=== PATIENT | male | born 1955 | race Caucasian/White ===

== ENCOUNTER 2024-04-26 23:58 | Emergency (ER) | payer MEDICARE, SELFPAY ==
--- NOTE | ~2024-04-26 | CT_ITS ---
Non-contrast Head CT History: Trouble walking Technique: Axial non-contrast imaging of the brain was performed. Dose reduction technique was used on this scan by utilizing automated exposure control and iterative reconstruction technique. The dose -length product (DLP) was 681.00 mGy-cm. Findings: There is no evidence of intracranial hemorrhage, mass lesion, or acute infarct. Brain par enchyma appears normal. The ventricles and subarachnoid spaces are normal in size. The calvarium ap pears normal. There is left maxillary sinus disease. The remaining visualized paranasal sinuses and m astoid air cells are clear. Impression: No intracranial abnormality seen. Left maxillary sinus disease. Reviewed, dictated and finalized at location M. AIGN ANALYST Impression: No intracranial abnormality seen. Left maxillary sinus disease.
[2024-04-26 23:58] VITALS: BP 149/73; PULSE 65; RESP 18; TEMP 36.4; O2SAT 100
--- NOTE | 2024-04-27 00:01 | ECG_ITS ---
Test Date: 2024-04-27 01:25:12 Measurements Intervals [place] Rate: 60 P: 47 TN: 194 QRS: 75 QRSD: 124 T: 57 QT: 471 QTc: 471 Interpretive Statements SINUS RHYTHM POSSIBLE RIGHT VENTRICULAR CONDUCTION DELAY [RSR (QR) IN V1/V2] No previous ECG available for comparison Electronically Signed On 04-28-2024 12:34:07 CHIEF OPERATOR SYNTHESIS by Miquel Akbar M.D.
[2024-04-27 00:16] LABS: Basophils Absolute Auto 0.05 K/mm3 (0.00-0.10); Basophils Percent Auto 0.5 % (0.0-1.0); Eosinophils Absolute Auto 0.22 K/mm3 (0.02-0.50); Eosinophils Percent Auto 2.1 % (1.0-6.0); Hematocrit 35.9 % (37.0-46.0); Hemoglobin 11.6 g/dL (12.4-15.3); Immature Granulocyte Absolute 0.07 K/mm3 (0.00-0.00); Immature Granulocyte Percent A 0.7 % (0.0-0.0); Lymphocytes Absolute Auto 2.84 K/mm3 (1.10-4.50); Lymphocytes Percent Auto 27.5 % (18.0-42.0); Mean Corpuscular HGB Conc 32.3 g/dL (32-36); Mean Corpuscular Hemoglobin 30.3 pg (27.0-31.0); Mean Corpuscular Volume 93.7 fL (78.0-102.0); Mean Platelet Volume 10.8 fl (8.7-11.0); Monocytes Absolute Auto 1.28 K/mm3 (0.10-0.90); Monocytes Percent Auto 12.4 % (2.0-11.0); Neutrophils Absolute Auto 5.87 K/mm3 (1.70-7.20); Neutrophils Percent Auto 56.8 % (50.0-70.0); Platelet Count Result 212 K/mm3 (150-420); Red Blood Count 3.83 M/mm3 (4.70-6.10); Red Cell Distribution Width 14.4 % (11.6-14.4); White Blood Count 10.3 K/mm3 (4.8-10.8)
--- NOTE | 2024-04-27 00:20 | ED.GENADULT ---
HPI - General Adult General Chief complaint: Unspecified Stated complaint: Low Blood Sugar Time Seen by Provider: 04/27/24 00:00 Source: patient and EMS Mode of arrival: EMS Limitations: no limitations History of Present Illness HPI narrative: 68 year old male arrives to the Emergency Department via EMS. Patient was at local bar and having difficulty walking. He normally walks with a cane. He has Parkinson's and right below knee amputation. He states he had 2 drinks (scotch and water). He denies any headache, chest pain, shortness of breath, abdominal pain, recent illness with nausea or vomiting. EMS reports patient had blood glucose in 60's. He was given Mountain Dew and rechecked and still in 60's. He was given 15 gm glucose and D10 IV. Onset (ago): minute(s) Relieving factors: none Exacerbating factors: none Treatments prior to arrival: other (glucose) Related Data Home Medications ?Medication ?Instructions ?Recorded ?Confirmed ?Last Taken ?Type carbidopa 25 mg-levodopa 100 mg 1 tablet PO TIDWM 03/21/21 03/21/21 Unknown History tablet levothyroxine 150 mcg tablet 150 mcg PO DAILY 03/21/21 03/21/21 Unknown History pantoprazole 40 mg tablet,delayed 40 mg PO BID 03/21/21 03/21/21 Unknown History release pregabalin 150 mg capsule 150 mg PO BID 03/21/21 03/21/21 Unknown History subcutaneous insulin pump (MiniMed 03/21/21 04/27/24 Unknown History 770G Insulin Pump) amlodipine 5 mg tablet 5 mg PO DAILY 04/27/24 04/27/24 Unknown History ezetimibe 10 mg tablet 10 mg PO DAILY 04/27/24 04/27/24 Unknown History insulin glargine 100 unit/mL (3 30 unit subcut DAILY 04/27/24 04/27/24 Unknown History mL) subcutaneous pen (Basaglar KwikPen U-100 Insulin) sertraline 50 mg tablet 50 mg PO DAILY 04/27/24 04/27/24 Unknown History Allergies Allergy/AdvReac Type Severity Reaction Status Date / Time No Known Allergies Allergy Verified 03/22/21 06:07 Review of Systems Review of Systems: All systems reviewed & are unremarkable except as noted in HPI and below Constitutional: Constitutional: Reports as per HPI, Denies chills and Denies fever(s) Eyes: Eyes: Reports as per HPI and Denies change in vision ENT: Reports system reviewed and no additional complaints, except as documented Cardiovascular: Cardiovascular: Reports as per HPI, Denies chest pain, Denies rapid heart rate and Denies slow heart rate Respiratory: Respiratory: Reports as per HPI and Denies dyspnea Gastrointestinal: Gastrointestinal: Reports as per HPI, Denies abdominal pain, Denies diarrhea, Denies nausea and Denies vomiting Genitourinary: Genitourinary: Reports no additional male genitourinary complaints, Denies dysuria and Denies urinary frequency Musculoskeletal: Musculoskeletal: Reports no additional musculoskeletal complaints Integumentary/Breasts: Skin/Breast: Reports system reviewed and no additional complaints, except as docu Neurologic: Reports system reviewed and no additional complaints, except as documented Comments: difficulty walking Endocrine: Endocrine: Reports no additional endocrine complaints Hematologic/Lymphatic: Hematologic/Lymphatic: Reports no additional hematologic/lymphatic complaints Allergic/Immunologic: Allergic/Immunologic: Reports no additional allergic/immunologic complaints PMFSH Past Medical History Medical History Hypothyroidism Parkinsons Osteoarthritis Rheumatoid arthritis PVD (peripheral vascular disease) Chronic kidney disease Hypertension Erosive esophagitis Surgical History Surgical History Status post below knee amputation of right lower extremity Family History Family History Father Family history of liver disease Family history of diabetes mellitus in first degree relative Family history of neuropathy Mother Family history of diabetes mellitus in first degree relative Family history of neuropathy Social History Social History Social History: patient lives in his nephew's home in the basement. Smoking status: Former smoker Alcohol intake: never Exam Const: General: no acute distress and alert Nutritional Appearance: well nourished Orientation/consciousness: patient oriented x3 Limitations: no limitations HENMT: Head: normal to inspection Ears: external ears normal Face/Nose/Sinus: Normal external nose present Face and sinus: normal facial exam Mouth: Yes Normal oral and palatal mucosa present Teeth and gingiva: dentition normal Throat: posterior oropharynx normal Eyes: Pupils: Equal, round and reactive pupils present EOM: EOMs intact bilaterally Direct Ophthalmoscopy: no photophobia Neck: Neck: normal visual inspection and meningismus present Chest: Chest palpation & inspection: normal inspection of the chest Resp: Effort & Inspection: normal respiratory effort Auscultation: clear to auscultation bilaterally Cardio: Rate: regular rate Rhythm: regular rhythm GI: Inspection: non-distended GI Palp: Yes Soft to palpation and No Tenderness to palpation present (GI) : General: Yes bladder normal to palpation Back/Spine/Pelvis: Back: no CVA tenderness Skin: General skin exam: normal color Neuro: General: patient oriented x3, moves all extremities, no meningeal signs, no focal motor deficits and CN's II-XI intact bilaterally Other: attempted to ambulate, but patient can stand but unable to walk Extrem: Other: right BKA Course Course Emergency Course: 68 y/o male arrives to the ED via EMS. Patient was at local bar and having difficulty walking PE: smells of Etoh, right BKA FSBS: 183 CBC: H/H 11.6/35.9, Plt 212; wbc 10.3 with 57 S, 27 L, 12 M CMP: Na 137, K 4.1, Cl 100, CO2 28, Glc 250, BUN 14, Cr 1.27; LFT's normal TNI: 5.2 EKG: NSR, 60, NAC Lactic: 1.7 Etoh: 170 UA: unremarkable CT Head: no acute findings Tx: youth nutritional monitor, pulse ox *patient has no way to get home at this time. Will let him sleep in ED until BAL lower and see if able to walk at that time. Patient voices understanding and is in agreement. (2495) patient is feeling better and able to walk again [back to baseline]. He has a special education bus driver coming to pick him up. Patient is ready to go home. Instructions Vital Signs Vital signs: Vital Signs Temperature 36.4 C 04/26/24 23:58 Pulse Rate 65 04/26/24 23:58 Respiratory Rate 18 04/26/24 23:58 Blood Pressure 149/73 H 04/26/24 23:58 Pulse Oximetry 100 04/26/24 23:58 Oxygen Delivery Room Air 04/26/24 23:58 Temperature 36.4 C 04/26/24 23:58 Pulse Rate 65 04/26/24 23:58 Respiratory Rate 18 04/26/24 23:58 Blood Pressure 149/73 H 04/26/24 23:58 Pulse Oximetry 100 04/26/24 23:58 Oxygen Delivery Room Air 04/26/24 23:58 Medical Decision Making Vital Signs Vital Signs: Vital Signs Temperature 36.4 C 04/26/24 23:58 Pulse Rate 65 04/26/24 23:58 Respiratory Rate 18 04/26/24 23:58 Blood Pressure 149/73 H 04/26/24 23:58 Pulse Oximetry 100 04/26/24 23:58 Oxygen Delivery Room Air 04/26/24 23:58 Temperature 36.4 C 04/26/24 23:58 Pulse Rate 65 04/26/24 23:58 Respiratory Rate 18 04/26/24 23:58 Blood Pressure 149/73 H 04/26/24 23:58 Pulse Oximetry 100 04/26/24 23:58 Oxygen Delivery Room Air 04/26/24 23:58 Lab Data 04/27/24 00:13 04/27/24 00:13 Labs: Lab Results 04/27/24 04/27/24 Range/Units 00:13 02:25 WBC 10.3 (4.8-10.8) K/mm3 RBC 3.83 L (4.70-6.10) M/mm3 Hgb 11.6 L (12.4-15.3) g/dL Hct 35.9 L (37.0-46.0) % MCV 93.7 (78.0-102.0) fL MCH 30.3 (27.0-31.0) pg MCHC 32.3 (32-36) g/dL RDW 14.4 (11.6-14.4) % Plt Count 212 (150-420) K/mm3 MPV 10.8 (8.7-11.0) fl Immature Gran % (Auto) 0.7 H (0.0-0.0) % Neut % (Auto) 56.8 (50.0-70.0) % Lymph % (Auto) 27.5 (18.0-42.0) % [place] % (Auto) 12.4 H (2.0-11.0) % Eos % (Auto) 2.1 (1.0-6.0) % Baso % (Auto) 0.5 (0.0-1.0) % Lymph # (Auto) 2.84 (1.10-4.50) K/mm3 [place] # (Auto) 1.28 H (0.10-0.90) K/mm3 Eos # (Auto) 0.22 (0.02-0.50) K/mm3 Baso # (Auto) 0.05 (0.00-0.10) K/mm3 Abs Immat Gran (auto) 0.07 H (0.00-0.00) K/mm3 Absolute Neuts (auto) 5.87 (1.70-7.20) K/mm3 Absolute Nucleated RBC 0.00 (0.00-0.00) K/mm3 Nucleated RBC % 0.0 (0-0.0) % Sodium 137 (136-145) mmol/L Potassium 4.1 (3.5-5.1) mmol/L Chloride 100 (98-108) mmol/L Carbon Dioxide 28 (21-32) mmol/L Anion Gap 9 (4-12) mmol/L BUN 14 (7-18) mg/dL Creatinine 1.27 (0.70-1.30) mg/dL Estim Creat Clear Calc Not Reportable Estimated GFR 56 L (59 - ) Glucose 250 H (70-99) mg/dL Calculated Osmolality 292 (285-295) mOsm/kg Lactic Acid 1.7 (0.4-2.0) mmol/L Calcium 8.7 (8.5-10.1) mg/dL Total Bilirubin 0.3 (0.00-1.00) mg/dL AST 17 (15-37) U/L ALT 14 L (16-63) U/L Alkaline Phosphatase 120 H (46-116) U/L Troponin I 5.2 (0.00-60.4) ng/L Total Protein 7.1 (6.4-8.2) g/dL Albumin 3.4 (3.4-5.0) g/dL Urine Color Light yellow (Yellow) Urine Appearance Clear (Clear) Urine pH 6.0 (5.0-8.0) Ur Specific [place] <= 1.005 L (1.010-1.020) Urine Protein Negative (Negative) Urine Glucose (UA) Negative (Negative) Urine Ketones Negative (Negative) Ur Blood (Man) Negative (Negative) Urine Nitrate Negative (Negative) Urine Bilirubin Negative (Negative) Urine Urobilinogen 0.2 (0.2-1.0) mg/dL Ur Leukocyte Esterase Trace H (Negative) Urine RBC 0-2 (0-2) /hpf Urine WBC 0-3 (0-3) /hpf Ur Squamous Epith Cells Rare (Few) /hpf Urine Bacteria Trace (None) /hpf Ethyl Alcohol 170 H (0-6) mg/dL Discharge Plan Discharge Clinical Impression: Alcohol intoxication, Unsteady gait when walking Patient Disposition: Home, Self-Care Condition: Stable Instructions: Parkinson Disease (ED), Alcohol Intoxication (ED) Additional Instructions: Continue home medications Limit alcohol use Follow up Primary Care Physician Patient Language: Liberian Prescriptions: No Action amlodipine 5 mg tablet 5 mg PO DAILY sertraline 50 mg tablet 50 mg PO DAILY ezetimibe 10 mg tablet 10 mg PO DAILY insulin glargine [Basaglar KwikPen U-100 Insulin] 100 unit/mL (3 mL) insulin pen 30 unit SUBCUT DAILY pantoprazole 40 mg Tablet,Delayed Release (Dr/Ec) 40 mg PO BID levothyroxine 150 mcg Tablet 150 mcg PO DAILY carbidopa-levodopa 25-100 mg Tablet 1 tablet PO TIDWM pregabalin 150 mg Capsule 150 mg PO BID (DME) MiniMed 770G Insulin Pump Misc MISCELLANEOUS Rx Instructions: Novolog insulin Home Medication 1 ea Not Applicable DAILY@0600 Qty: 0 0RF Follow-up/Referrals: UNKNOWN,DOCTOR [Primary Care Provider] - Time of Disposition: 05:52
[2024-04-27 00:34] LABS: Lactic Acid Reflex 1.7 mmol/L (0.4-2.0)
[2024-04-27 00:41] LABS: Alanine Aminotransferase 14 U/L (16-63); Albumin Level 3.4 g/dL (3.4-5.0); Alkaline Phosphatase 120 U/L (46-116); Anion Gap 9 mmol/L (4-12); Aspartate Amino Transferase 17 U/L (15-37); Bilirubin,Total 0.3 mg/dL (0.00-1.00); Blood Urea Nitrogen 14 mg/dL (7-18); Calcium 8.7 mg/dL (8.5-10.1); Carbon Dioxide 28 mmol/L (21-32); Chloride 100 mmol/L (98-108); Estimated Glomerular Filt Rate 56; Ethanol 170 mg/dL (0-6); Glucose 250 mg/dL (70-99); Osmolality Calculated 292 mOsm/kg (285-295); Potassium 4.1 mmol/L (3.5-5.1); Sodium 137 mmol/L (136-145); Total Protein 7.1 g/dL (6.4-8.2); Troponin I 5.2 ng/L (0.00-60.4)
--- NOTE | 2024-04-27 01:36 | PC.NURSE ---
ERP reports pt's ETOH level is 2x the legal limit. Pt has no one to pick him up from the ER, no way to get home or back to his car. Pt was assisted to stand and asked to attempt to ambulate. Pt very unsteady on his feet and unable to take any steps. Per ERP, Pt will remain in his stretcher and allowed to sleep until his ETOH level comes down.
[2024-04-27 02:43] LABS: Add Urine Microscopic? YES; Appearance Urine Clear (Clear); Bilirubin Urine Negative (Negative); Blood Urine Negative (Negative); Color Urine Light Yellow (Yellow); Glucose Urine UA Negative (Negative); Ketones Urine Negative (Negative); Leukocyte Esterase Ur Trace (Negative); Nitrate Urine Negative (Negative); Protein Urine Negative (Negative); Specific Grav Ur <= 1.005 (1.010-1.020); Urobilinogen Urine 0.2 mg/dL (0.2-1.0)
[2024-04-27 02:45] LABS: Bacteria Urine Trace /hpf; RBC Urine 0-2 /hpf (0-2); Squamous Epithelial Cell Urine Rare /hpf (Few); WBC Urine 0-3 /hpf (0-3)
[2024-04-27 06:03] VITALS: BP 130/75; PULSE 68; RESP 18; TEMP 36.9; O2SAT 100
== END 2024-04-27 06:10 | disposition home or self-care (01) ==
PROVIDERS: Emergency Provider Emergency Medicine
DX: F10.129 Alcohol abuse with intoxication, unspecified (principal); Y90.9 Presence of alcohol in blood, level not specified; R26.81 Unsteadiness on feet; G20.A1 Parkinson's disease without dyskinesia, without mention of fluctuations; E03.9 Hypothyroidism, unspecified; I12.9 Hypertensive chronic kidney disease with stage 1 through stage 4 chronic kidney disease, or unspecified chronic kidney disease; N18.9 Chronic kidney disease, unspecified; Z79.4 Long term (current) use of insulin; Z79.899 Other long term (current) drug therapy
CPT/HCPCS: 36415; 70450; 80053; 81001; 82077; 83605; 84484; 85025; 93005; 99284